=== PATIENT | female | born 1995 | race Caucasian/White ===

== ENCOUNTER 2017-04-19 02:36 | Emergency (ER) | payer SELFPAY ==
[2017-04-19 02:49] VITALS: BP 130/64
[2017-04-19] MEDS ORDERED: METOCLOPRAMIDE HCL 10 MG TABLET PO ONE (03:13)
[2017-04-19] MEDS ORDERED: ACETAMINOPHEN 325 MG TABLET PO ONE ×2 (03:14)
[2017-04-19] MEDS ORDERED: DIPHENHYDRAMINE HCL 25 MG CAPSULE PO ONE (03:14)
--- NOTE | 2017-04-19 03:16 | ER Document Report ---
ED General - General Chief Complaint: Headache Stated Complaint: HEADACHES GETTING WORSE WITH FLICKERING VISION Time Seen by Provider: 04/19/17 03:02 Notes: Patient is a 21-year-old female that comes emergency department for chief complaint of intermittent headaches for the past couple of weeks. She has had increased headaches especially this week, she has had 4 different "migraines". She reports a frontal headache with sensation of fluttering vision in her peripheral vision. Symptoms resolve when she takes ibuprofen. She reports a current headache at about 4 out of 10. She denies nausea, vomiting, paresthesias, focal weakness, visual loss. She denies injury. She reports a past medical history of ITP, states she has been on IVIG for this in the past, she does not take any daily medications, she has not had any surgeries, LMP 2 weeks ago. She states that she just wants her blood counts checked to be safe. She reports some bruising at home but denies any bleeding symptoms out of the ordinary. TRAVEL OUTSIDE OF THE [place] IN LAST 30 DAYS: No - Related Data Allergies/Adverse Reactions: No Known Allergies Allergy (Unverified 04/19/17 03:51) Past Medical History - General Information source: Patient - Social History Smoking Status: Never Smoker Frequency of alcohol use: None Drug Abuse: None Lives with: Spouse/Significant other Family History: Reviewed & Not Pertinent Patient has suicidal ideation: No Patient has homicidal ideation: No Renal/ Medical History: Denies: Hx Peritoneal Dialysis Surgical Hx: Negative - Immunizations Immunizations up to date: Yes Hx Diphtheria, Pertussis, Tetanus Vaccination: Yes Review of Systems - Review of Systems Constitutional: No symptoms reported EENT: No symptoms reported Cardiovascular: No symptoms reported Respiratory: No symptoms reported Gastrointestinal: No symptoms reported Genitourinary: No symptoms reported Female Genitourinary: No symptoms reported Musculoskeletal: No symptoms reported Skin: No symptoms reported Hematologic/Lymphatic: No symptoms reported Neurological/Psychological: See HPI Physical Exam - Vital signs Vitals: Temp Pulse Resp BP Pulse Ox 98.4 F 82 16 130/64 H 99 04/19/17 02:44 04/19/17 02:44 04/19/17 02:44 04/19/17 02:44 04/19/17 02:44 Interpretation: Normal - General General appearance: Appears well, Alert In distress: None - HEENT Head: Normocephalic, Atraumatic Eyes: Normal Conjunctiva: Normal Extraocular movements intact: Yes Eyelashes: Normal Pupils: PERRL Nasal: Normal Mouth/Lips: Normal Mucous membranes: Normal Pharynx: Normal Neck: Normal - Respiratory Respiratory status: No respiratory distress Chest status: Nontender Breath sounds: Normal Chest palpation: Normal - Cardiovascular Rhythm: Regular. No: Tachycardia Heart sounds: Normal auscultation, S1 appreciated, S2 appreciated Murmur: No - Abdominal Inspection: Normal Distension: No distension Bowel sounds: Normal Tenderness: Nontender. No: Tender, Guarding Organomegaly: No organomegaly - Back Back: Tender - Mild tenderness in the paracervical musculature, normal midline exam, normal upper and lower extremity range of motion, normal distal neurovascular exam, no saddle anesthesia.. No: Vertebra tenderness - Extremities General upper extremity: Normal inspection, Nontender, Normal color, Normal ROM , Normal temperature General lower extremity: Normal inspection, Nontender, Normal color, Normal ROM , Normal temperature, Normal weight bearing. No: Leonardo's sign - Neurological Neuro grossly intact: Yes Cognition: Normal Orientation: AAOx4 Redmon Coma Scale Eye Opening: Spontaneous Redmon Coma Scale Verbal: Oriented Omar Coma Scale Motor: Obeys Commands Omar Coma Scale Total: 15 Speech: Normal Motor strength normal: LUE, RUE, LLE, RLE Sensory: Normal - Psychological Associated symptoms: Normal affect, Normal mood - Skin Skin Temperature: Warm Skin Moisture: Dry Skin Color: Normal Course - Re-evaluation Re-evalutation: Patient has mild tenderness in the bilateral paracervical muscles, no nuchal rigidity, normal back exam otherwise. Patient treated for a headache, she states somewhat improved but not resolved, requests additional medication. Given Fioricet because of her symptoms. Neurological exam: Patient smiling, talkative, well-appearing. Nontoxic. Vital signs unremarkable. CBC shows normal findings except for low platelets at 84,000 patient states this is actually around her normal baseline, she states that nothing ever gets done unless she has symptoms of petechiae, bleeding, or a value of 50,000 or less. Patient has none of these things. Patient given a copy of her report. Patient grateful for this, states she is ready to leave. I did discuss a CAT scan because of her symptoms, however because of her benign exam, lack of concerning symptoms, this was deferred. Low suspicion of intracranial bleed, subarachnoid hemorrhage, meningitis, or mass. Patient requesting to leave now without waiting to see if the additional medication resolves her headache completely, she states that she will return if she worsens in any way. - Vital Signs Vital signs: Temp Pulse Resp BP Pulse Ox 98.4 F 82 16 130/64 H 99 04/19/17 02:44 04/19/17 02:44 04/19/17 02:44 04/19/17 02:44 04/19/17 02:44 - Laboratory Result Diagrams: 04/19/17 03:22 Laboratory results interpreted by me: 04/19/17 03:22 Plt Count 83 L Discharge - Discharge Clinical Impression: Chronic ITP (idiopathic thrombocytopenia) Headache Qualifiers: Headache type: unspecified Headache chronicity pattern: episodic headache Intractability: not intractable Qualified Code(s): R51 - Headache Condition: Stable Disposition: HOME, SELF-CARE Instructions: Family Physicians / Practices Additional Instructions: Your neurological exam today is normal. Your symptoms are suggestive of a tension headache but they are nonspecific. Take your blood counts from today for follow-ups and monitoring with primary care. Please return to the emergency department immediately if you develop any concerning or worsening symptoms including severe headache, vomiting, numbness/ weakness, fever, petechiae, or any other concerning symptoms. Prescriptions: Butalb/Acetaminophen/Caffeine [Fioricet (50-325-40 mg) Tablet] 1 tab PO Q4HP PRN #30 tab PRN Reason:
[2017-04-19 03:41] LABS: ABSOLUTE BASOPHILS # (AUTO) 0.1 10^3/uL (0.0-0.2); ABSOLUTE EOSINOPHILS # (AUTO) 0.3 10^3/uL (0.0-0.6); ABSOLUTE LYMPHOCYTES (AUTO) 1.7 10^3/uL (0.5-4.7); ABSOLUTE MONOCYTES (AUTO) 0.4 10^3/uL (0.1-1.4); ABSOLUTE NEUT (AUTO) 4.1 10^3/uL (1.7-8.2); EOSINOPHILS % (AUTO) 5.1 % (0-6); HEMATOCRIT 39.4 % (36.0-47.0); HEMOGLOBIN 13.6 g/dL (12.0-15.5); HGB HCT DIFFERENCE 1.4; LYMPHOCYTES % (AUTO) 26.1 % (13-45); MEAN CORPUSCULAR HEMOGLOBIN 31.9 pg (27.0-33.4); MEAN CORPUSCULAR HGB CONC 34.4 g/dL (32.0-36.0); MEAN CORPUSCULAR VOLUME 93 fl (80-97); RED BLOOD COUNT 4.25 10^6/uL (3.72-5.28); RED CELL DISTRIBUTION WIDTH 12.9 % (11.5-14.0); SEGMENTED NEUTROPHILS % (AUTO) 61.8 % (42-78); WHITE BLOOD COUNT 6.7 10^3/uL (4.0-10.5)
[2017-04-19] MEDS ORDERED: BUTALB/ACETAMINOPHEN/CAFFEINE 1 TAB EACH PO ONE (04:56)
== END 2017-04-19 05:15 | disposition home or self-care (01) ==
LOC: ER 02:36
DX: R51 Headache (principal); D69.3 Immune thrombocytopenic purpura; H53.8 Other visual disturbances
CPT/HCPCS: 36415; 84703; 85025; 99284